=== PATIENT | male | born 1985 | race Caucasian/White ===

== ENCOUNTER 2017-07-01 17:01 | Emergency (ER) | payer OTHER ==
--- NOTE | 2017-07-01 18:41 | RAD ---
HISTORY: left fifth digit injury COMPARISONS: None VIEWS: 3, Frontal, lateral, and oblique views of the fifth digit of the left hand FINDINGS: BONE DENSITY: Normal. BONES: There is no displaced fracture. JOINTS: There is no arthropathy. ALIGNMENT: There is posterior and ulnar dislocation of the middle phalanx with respect to the proximal phalanx at the fifth PIP joint. SOFT TISSUES: Unremarkable. OTHER FINDINGS: None. IMPRESSION: FIFTH PIP DISLOCATION.
[2017-07-01] MEDS ORDERED: Bupivacaine 0.25% MDV* 50 ML VIAL INJ ONE (19:16)
[2017-07-01] MEDS ORDERED: Bupivacaine 0.5% SDV PF* 10-30ML VIAL ONE (19:22)
[2017-07-01 20:31] VITALS: BP 123/69
--- NOTE | 2017-07-01 20:52 | RAD ---
HISTORY: Post reduction COMPARISONS: July 01, 2017 at 6:14 PM VIEWS: 2, Frontal and lateral views of the fifth digit of the left hand FINDINGS: BONE DENSITY: Normal. BONES: There is no displaced fracture. JOINTS: There is no arthropathy. ALIGNMENT: There has been interval reduction of the dislocation of the fifth PIP joint. The alignment is anatomic. SOFT TISSUES: Unremarkable. OTHER FINDINGS: None. IMPRESSION: INTERVAL REDUCTION OF FIFTH PIP DISLOCATION
--- NOTE | 2017-07-01 21:20 | ED ---
Upper Extremity Pain - HPI Summary HPI Summary: 32 man presents with left little finger injury. He was playing basketball when he sustained the injury. He denies any numbness or tingling. He has deformity to the finger. He has never dislocated or fractured this before. He is left-handed. He denies any other injury. Has been taking anything for pain. Pain is with 10 out of 10. [place] [facility]. He has not medical conditions. - History of Current Complaint Chief Complaint: EDExtremityUpper Stated Complaint: LEFT PINKY FINGER INJURY Time Seen by Provider: 07/01/17 19:07 - Allergies/Home Medications Allergies/Adverse Reactions: Allergies Allergy/AdvReac Type Severity Reaction Status Date / Time No Known Allergies Allergy Unknown Verified 07/01/17 18:41 Reaction Details PMH/Surg Hx/FS Hx/Imm Hx Endocrine/Hematology History: Denies: Hx Anticoagulant Therapy Cardiovascular History: Denies: Hx Myocardial Infarction Infectious Disease History: No Infectious Disease History: Denies: Traveled Outside the [place] in Last 30 Days - Family History Known Family History: Positive: Hypertension - Social History Alcohol Use: None Substance Use Type: Reports: None Smoking Status (MU): Current Some Day Smoker Review of Systems Negative: Fever Negative: Chest Pain Negative: Shortness Of Breath Positive: Other - deformity to PIP left little finger All Other Systems Reviewed And Are Negative: Yes Physical Exam Triage Information Reviewed: Yes Vital Signs On Initial Exam: Initial Vitals Temp Pulse Resp BP Pulse Ox 98.4 F 60 18 137/73 98 07/01/17 17:07 07/01/17 17:07 07/01/17 17:07 07/01/17 17:07 07/01/17 17:07 Vital Signs Reviewed: Yes Appearance: Positive: Well-Appearing Skin: Positive: Warm, Dry Head/Face: Positive: Normal Head/Face Inspection Eyes: Positive: Normal, Conjunctiva Clear Respiratory/Lung Sounds: Positive: Clear to Auscultation, Breath Sounds Present Cardiovascular: Positive: Normal, RRR Musculoskeletal: Positive: Limited @ - left pinky, Other - Deformity to PIP joint of left little finger, capillary refill less than 2 seconds, good pulses, sensation grossly intact Neurological: Positive: Normal Psychiatric: Positive: Normal Procedures - Splinting Location: little left finger Pre-Made Type: metal Pre-Proc Neuro Vasc Exam: normal Post-Proc Neuro Vasc Exam: normal - Joint Reduction Joint Reduction Site: other Specify Other Joint Reduced: left pinky finger Conscious Sedation: No - digital block Reduction Attempts: 1 Pre-Procedure NV Exam: Yes Post Joint Reduction Film: joint reduced Diagnostics - Vital Signs Vital Signs Temp Pulse Resp BP Pulse Ox 07/01/17 20:31 98.5 F 75 16 123/69 98 07/01/17 17:07 98.4 F 60 18 137/73 98 - Laboratory Lab Statement: Any lab studies that have been ordered have been reviewed, and results considered in the medical decision making process. - Radiology finger Xray Interpretation: Positive (See Comments) - FIFTH PIP DISLOCATION. Radiology Interpretation Completed By: Radiologist Course/Dx - Course Course Of Treatment: 32 man presents with left little finger injury. He was playing basketball when he sustained the injury. He denies any numbness or tingling. He has deformity to the finger. He has never dislocated or fractured this before. He is left-handed. He denies any other injury. Has been taking anything for pain. Pain is with 10 out of 10. On exam deformities of PIP joint. X ray shows dislocation. performed digital blocking mainly relocating finger. Repeat x-ray shows joint reduced. Placed in splint. Will have follow-up with orthopedic. Patient understands and agrees with plan. - Diagnoses Differential Diagnosis/HQI/PQRI: Positive: Fracture (Closed), Sprain, Other - dislocation Provider Diagnoses: Dislocation of proximal interphalangeal joint of left little finger Discharge - Discharge Plan Condition: Good Disposition: HOME Patient Education Materials: Finger Dislocation (ED) Referrals: Juve Morris MD [Primary Care Provider] - Robbi Hwang MD [Medical Doctor] - Additional Instructions: Keep finger in splint Follow up with ortho Take tyenlol or ibuprofen for pain every 6 hours Return to ED if develop any new or worsening symptoms
== END 2017-07-01 21:31 | disposition home or self-care (01) ==
LOC: ED 17:01
DX: S63.287A Dislocation of proximal interphalangeal joint of left little finger, initial encounter (principal); X58.XXXA Exposure to other specified factors, initial encounter; Y93.67 Activity, basketball; Y92.9 Unspecified place or not applicable; Z72.0 Tobacco use
CPT/HCPCS: 26670; 73140; 99282